=== PATIENT | male | born 1935 | race Caucasian/White ===

== ENCOUNTER 2019-04-20 12:18 | Emergency (ER) | payer MEDICARE ==
[~2019-04-20 12:18] MED LIST: AEC81 PO; AMLO10TA7 PO; ASCO500T9 PO; ATOR40TA71 PO; BUPR200T34 PO; FURO20TA4 PO; KETO5DRO82 OU; LISI40TA4 PO; LOSA100T58 PO; METF-444 PO; METO50TA18 PO; MULT-603 PO; NITR0.4T SL; OFLO35OS OU; OMEP-50 PO; PRED5DRO17 OU; WARF2TAB57 PO; WARF3TAB29 PO
[2019-04-20] MEDS ORDERED: IPRATROPIUM/ALBUTEROL SULFATE 3 ML SOLUTION IH ONE (13:03)
[2019-04-20 13:27] LABS: BASOPHILS % (AUTO) 0.4 % (0.0-5.0); EOSINOPHILS % (AUTO) 0.4 % (0.0-8.0); HEMATOCRIT 47.5 % (42-54); LYMPHOCYTES % (AUTO) 8.2 % (21.0-51.0); MEAN CORPUSCULAR HEMOGLOBIN 31.6 pg (27.0-33.0); MEAN CORPUSCULAR HGB CONC 33.5 g/dL (32.0-36.0); MEAN CORPUSCULAR VOLUME 94.4 fL (79-99); MONOCYTES % (AUTO) 10.4 % (3.0-13.0); NEUTROPHILS % (AUTO) 80.6 % (40.0-77.0); PLATELET COUNT (AUTO) 121 K/uL (130-400); RED BLOOD CELL COUNT(AUTO) 5.03 MIL/uL (4.50-6.20); RED CELL DISTRIBUTION WIDTH 15.7 % (11.0-15.5); WHITE BLOOD COUNT (AUTO) 7.4 K/uL (4.8-10.8)
[2019-04-20] MEDS ORDERED: SODIUM CHLORIDE 0.9% 1000ML 1,000 ML IV ONE (13:30)
[2019-04-20 13:32] LABS: CREATININE 1.4 mg/dL (0.5-1.5); POTASSIUM 4.7 mmol/L (3.5-5.1)
[2019-04-20 13:34] LABS: RAPID GROUP A STREP NEGATIVE (NEGATIVE)
[2019-04-20 13:37] LABS: BILIRUBIN,TOTAL 0.9 mg/dL (0.2-1.0); TOTAL PROTEIN, SERUM 7.7 g/dL (6.0-8.3)
[2019-04-20 14:35] LABS: APPEARANCE,URINE Clear (CLEAR); BILIRUBIN,URINE Negative (NEGATIVE); COLOR,URINE Yellow (YELLOW); GLUCOSE, URINE (UA) Negative (NEGATIVE); KETONES,URINE Negative (NEGATIVE); LEUKOCYTE ESTERASE ,URINE Negative (NEGATIVE); NITRATE,URINE Negative (NEGATIVE); OCCULT BLOOD,URINE Trace (NEGATIVE); PROTEIN,URINE Negative (NEGATIVE)
[2019-04-20 14:49] LABS: BACTERIA,URINE Rare /HPF (None Seen); MUCUS,URINE None Seen LPF (None Seen); SQUAMOUS EPITHELIAL CELL,UR Rare /HPF (0-2); WBC,URINE 0-1 /HPF (0-1)
== END 2019-04-20 15:17 | disposition home or self-care (01) ==
LOC: EDH 12:18
DX: B34.9 Viral infection, unspecified (principal); I25.810 Atherosclerosis of coronary artery bypass graft(s) without angina pectoris; E11.9 Type 2 diabetes mellitus without complications; E78.5 Hyperlipidemia, unspecified; I10 Essential (primary) hypertension; I25.2 Old myocardial infarction; Z87.891 Personal history of nicotine dependence
CPT/HCPCS: 36415; 71046; 80053; 81001; 85025; 87804 ×2; 87880; 94640; 96360; 96361; 99285; J7030

== ENCOUNTER 2020-09-23 14:00 | Inpatient (IN) | payer MEDICARE, OTHER ==
[~2020-09-23] VITALS: Ht 175.3 cm; Wt 93.0 kg
[~2020-09-23 14:00] MED LIST changes: -AEC81 PO; -AMLO10TA7 PO; -ASCO500T9 PO; -FURO20TA4 PO; -KETO5DRO82 OU; -LISI40TA4 PO; -MULT-603 PO; -NITR0.4T SL; -OFLO35OS OU; -OMEP-50 PO; +OMEP20CA12 PO; -PRED5DRO17 OU; -WARF2TAB57 PO
[2020-09-23 15:19] LABS: BASOPHILS % (AUTO) 0.9 % (0.0-5.0); EOSINOPHILS % (AUTO) 3.1 % (0.0-8.0); HEMATOCRIT 43.2 % (42-54); LYMPHOCYTES % (AUTO) 19.4 % (21.0-51.0); MEAN CORPUSCULAR HGB CONC 33.3 g/dL (32.0-36.0); MEAN CORPUSCULAR VOLUME 92.9 fL (79-99); NEUTROPHILS % (AUTO) 65.2 % (40.0-77.0); PLATELET COUNT (AUTO) 136 K/uL (130-400); RED BLOOD CELL COUNT(AUTO) 4.65 MIL/uL (4.50-6.20); RED CELL DISTRIBUTION WIDTH 13.9 % (11.0-15.5); WHITE BLOOD COUNT (AUTO) 5.6 K/uL (4.8-10.8)
[2020-09-23 15:30] LABS: INR 2.86 (0.85-1.15); PROTHROMBIN TIME 28.3 SEC (9.6-11.6)
[2020-09-23 15:31] LABS: PARTIAL THROMBOPLASTIN TIME 37.4 SEC (26.3-35.5)
[2020-09-23 15:36] LABS: ALBUMIN 4.1 g/dL (3.5-5.0); BILIRUBIN,TOTAL 0.6 mg/dL (0.2-1.0); CREATININE 1.3 mg/dL (0.5-1.5); TOTAL PROTEIN, SERUM 7.1 g/dL (6.0-8.3)
[2020-09-26 12:41] VITALS: BP 139/76
[2020-09-26] MEDS ORDERED: AMLO5TAB5 PO (13:49)
[2020-09-26] MEDS ORDERED: FURO40TA5 PO (13:49)
[2020-09-26 15:43] LABS: INR 1.3 (0.85-1.15); PROTHROMBIN TIME 13.8 SEC (9.6-11.6)
[2020-09-26 15:44] LABS: PARTIAL THROMBOPLASTIN TIME 27.6 SEC (26.3-35.5)
[2020-09-27] VITALS (44 sets, daily range): BP systolic 103–298; BP diastolic 49–295
[2020-09-27] MEDS ORDERED: 0.9%NACL 1000ML 1,000 ML IV ONE (07:39)
[2020-09-27] MEDS ORDERED: CEFAZOLIN SODIUM 1 GM VIAL IVP ONE (08:00)
[2020-09-27] MEDS ORDERED: DEXAMETHASONE SOD PHOSPHATE 10MG/ML 1ML VIAL ONE (08:32)
[2020-09-27] MEDS ORDERED: SUCCINYLCHOLINE CHLORIDE 20 MG/ML 10 ML VIAL ONE (08:32)
[2020-09-27] MEDS ORDERED: LIDOCAINE PF 100MG/5ML (2%) SYRINGE 5ML ONE (08:32)
[2020-09-27] MEDS ORDERED: PROPOFOL 10 MG/ML 20ML VIAL IV ONE (08:32)
[2020-09-27] MEDS ORDERED: ONDANSETRON 4MG INJ ONE ×2 (08:32→11:35)
[2020-09-27] MEDS ORDERED: GLYCOPYRROLATE 1 MG/5 ML SYRINGE ONE (08:32)
[2020-09-27] MEDS ORDERED: NEOSTIGMINE 5MG/5ML SYR IV ONE (08:33)
[2020-09-27] MEDS ORDERED: MIDAZOLAM HCL 1 MG/ML 2ML VIAL ONE (08:33)
[2020-09-27] MEDS ORDERED: KETAMINE 50MG/ML SYRINGE 50 MG/ML DISP.SYRIN IV ONE (08:33)
[2020-09-27] MEDS ORDERED: ROCURONIUM 10MG/1ML SYR 10 MG/ML ML ONE ×2 (08:33→09:33)
[2020-09-27] MEDS ORDERED: FENTANYL CITRATE PF 50 MCG/1 ML 5ML AMP IV ONE (08:36)
[2020-09-27] MEDS ORDERED: CEFAZOLIN SODIUM 1 GM VIAL ONE (08:52)
[2020-09-27] MEDS ORDERED: PHENYLEPHRINE HCL 10 MG/ML 1ML VIAL IV ONE (10:00)
[2020-09-27] MEDS ORDERED: ACETAMINOPHEN 325 MG TAB PO PRN (10:00)
[2020-09-27] MEDS ORDERED: ALBUTEROL INHALER 90MCG/INH IH ONE ×2 (10:07→10:09)
[2020-09-27] MEDS: PANTOPRAZOLE 40 MG TAB DR PO SCH (10:54)
[2020-09-27] MEDS ORDERED: BUPIVACAINE/PF 0.5% 30ML VIAL ONE (11:19)
[2020-09-27] MEDS ORDERED: LIDOCAINE HCL 1% 20 ML VIAL ONE (11:19)
[2020-09-27 13:37] LABS: ABG BASE EXCESS -7.1 mmol/L (-2.0-3.0); ABG HCO3 18.3 mmol/L (21.0-28.0); ABG OXYGEN SATURATION 97.8 % (95.0-99.0); ABG PCO2 37 mmHg (35-48)
[2020-09-27] MEDS ORDERED: SODIUM BICARB 50MEQ 50ML VIAL 100 ML ONE (13:54)
[2020-09-27] MEDS ORDERED: SODIUM BICARB 50MEQ 50ML VIAL IV PRN (14:00)
[2020-09-27] MEDS: TRAMADOL HCL 50 MG TABLET PO PRN ×2 (14:15→20:16)
[2020-09-27] MEDS: SODIUM BICARB 50MEQ 50ML VIAL IV PRN ×2 (14:16→17:51)
[2020-09-27 15:08] LABS: ABG BASE EXCESS -2.7 mmol/L (-2.0-3.0); ABG HCO3 22.2 mmol/L (21.0-28.0); ABG OXYGEN SATURATION 91.3 % (95.0-99.0); ABG PCO2 39 mmHg (35-48)
[2020-09-27 16:49] LABS: ABG BASE EXCESS -5.9 mmol/L (-2.0-3.0); ABG OXYGEN SATURATION 95.1 % (95.0-99.0); ABG PCO2 32 mmHg (35-48)
[2020-09-27] MEDS: WARFARIN SODIUM 1 MG TAB PO SCH (17:51)
[2020-09-27] MEDS: CEFAZOLIN SODIUM 1 GM VIAL IVP SCH (17:51)
[2020-09-27] MEDS: LOSARTAN 100 MG TABLET PO SCH (20:14)
[2020-09-27] MEDS: AMLODIPINE 5 MG TAB PO SCH (20:14)
[2020-09-27] MEDS: METFORMIN HCL 500 MG TABLET PO SCH (20:14)
[2020-09-27] MEDS: ATORVASTATIN 40 MG TABLET PO SCH (20:14)
[2020-09-27] MEDS: METOPROLOL TARTRATE 50 MG TAB PO SCH (20:16)
[2020-09-27 20:43] LABS: ABG BASE EXCESS 0.3 mmol/L (-2.0-3.0); ABG HCO3 23.2 mmol/L (21.0-28.0); ABG OXYGEN SATURATION 96.5 % (95.0-99.0); ABG PCO2 33 mmHg (35-48)
[2020-09-28] VITALS (43 sets, daily range): BP systolic 113–155; BP diastolic 59–96
[2020-09-28] MEDS: CEFAZOLIN SODIUM 1 GM VIAL IVP SCH ×2 (00:05→09:44)
[2020-09-28 04:01] LABS: BASOPHILS % (AUTO) 0.1 % (0.0-5.0); HEMATOCRIT 36.7 % (42-54); LYMPHOCYTES % (AUTO) 5.7 % (21.0-51.0); MEAN CORPUSCULAR HGB CONC 35.1 g/dL (32.0-36.0); MEAN CORPUSCULAR VOLUME 91.1 fL (79-99); MONOCYTES % (AUTO) 7.4 % (3.0-13.0); NEUTROPHILS % (AUTO) 86.4 % (40.0-77.0); PLATELET COUNT (AUTO) 123 K/uL (130-400); RED BLOOD CELL COUNT(AUTO) 4.03 MIL/uL (4.50-6.20); RED CELL DISTRIBUTION WIDTH 14.1 % (11.0-15.5); WHITE BLOOD COUNT (AUTO) 11.4 K/uL (4.8-10.8)
[2020-09-28 04:14] LABS: ALBUMIN 3.3 g/dL (3.5-5.0); BILIRUBIN,TOTAL 0.6 mg/dL (0.2-1.0); CREATININE 1.3 mg/dL (0.5-1.5); POTASSIUM 3.8 mmol/L (3.5-5.1); TOTAL PROTEIN, SERUM 6.2 g/dL (6.0-8.3)
[2020-09-28 04:26] LABS: PLATELET MORPHOLOGY PLT CLUMPS PRESENT
[2020-09-28] MEDS ORDERED: ALBUTEROL INHALER 90MCG/INH IH PRN (05:00)
[2020-09-28 05:18] LABS: ABG BASE EXCESS -1.3 mmol/L (-2.0-3.0); ABG HCO3 21.7 mmol/L (21.0-28.0); ABG OXYGEN SATURATION 94.5 % (95.0-99.0); ABG PCO2 32 mmHg (35-48)
[2020-09-28] MEDS: SODIUM BICARB 50MEQ 50ML VIAL IV PRN (05:24)
[2020-09-28] MEDS ORDERED: IPRATROPIUM/ALBUTEROL SULFATE 3 ML SOLUTION IH ONE (05:30)
[2020-09-28] MEDS ORDERED: SOLU-MEDROL 40MG VIAL ONE (05:42)
[2020-09-28] MEDS: SOLU-MEDROL 40MG VIAL IVP SCH ×2 (05:42→08:01)
[2020-09-28] MEDS: PANTOPRAZOLE 40 MG TAB DR PO SCH (08:01)
[2020-09-28] MEDS: METOPROLOL TARTRATE 50 MG TAB PO SCH ×2 (08:01→22:33)
[2020-09-28] MEDS: FUROSEMIDE 40 MG TABLET PO SCH (08:01)
[2020-09-28] MEDS: METFORMIN HCL 500 MG TABLET PO SCH ×2 (08:01→22:33)
[2020-09-28 08:46] LABS: ABG HCO3 24.8 mmol/L (21.0-28.0); ABG OXYGEN SATURATION 93.9 % (95.0-99.0); ABG PCO2 37 mmHg (35-48)
[2020-09-28 09:05] LABS: INR 1.24 (0.85-1.15); PROTHROMBIN TIME 13.3 SEC (9.6-11.6)
[2020-09-28 09:07] LABS: PARTIAL THROMBOPLASTIN TIME 27.4 SEC (26.3-35.5)
[2020-09-28] MEDS: BUPROPION HCL 200 MG PO SCH ×2 (09:44→11:44)
[2020-09-28] MEDS: TRAMADOL HCL 50 MG TABLET PO PRN (16:55)
[2020-09-28] MEDS: WARFARIN SODIUM 1 MG TAB PO SCH (16:55)
[2020-09-28] MEDS: ATORVASTATIN 40 MG TABLET PO SCH (22:33)
[2020-09-28] MEDS: AMLODIPINE 5 MG TAB PO SCH (22:33)
[2020-09-28] MEDS: LOSARTAN 100 MG TABLET PO SCH (22:34)
[2020-09-29] VITALS (7 sets, daily range): BP systolic 104–143; BP diastolic 68–91
[2020-09-29] MEDS: TRAMADOL HCL 50 MG TABLET PO PRN ×5 (01:00→21:31)
[2020-09-29 05:01] LABS: HEMATOCRIT 36.4 % (42-54); MEAN CORPUSCULAR HEMOGLOBIN 30.8 pg (27.0-33.0); MEAN CORPUSCULAR VOLUME 93.6 fL (79-99); RED BLOOD CELL COUNT(AUTO) 3.89 MIL/uL (4.50-6.20); RED CELL DISTRIBUTION WIDTH 14.1 % (11.0-15.5); WHITE BLOOD COUNT (AUTO) 15.9 K/uL (4.8-10.8)
[2020-09-29] MEDS: PANTOPRAZOLE 40 MG TAB DR PO SCH (06:19)
[2020-09-29] MEDS: METFORMIN HCL 500 MG TABLET PO SCH ×2 (08:14→21:31)
[2020-09-29] MEDS: SOLU-MEDROL 40MG VIAL IVP SCH ×2 (08:14→21:31)
[2020-09-29] MEDS: FUROSEMIDE 40 MG TABLET PO SCH (08:15)
[2020-09-29] MEDS: METOPROLOL TARTRATE 50 MG TAB PO SCH ×2 (08:15→21:31)
[2020-09-29] MEDS: BUPROPION HCL 200 MG PO SCH (10:57)
[2020-09-29] MEDS: WARFARIN SODIUM 2 MG TAB PO SCH (16:20)
[2020-09-29] MEDS: ATORVASTATIN 40 MG TABLET PO SCH (21:31)
[2020-09-29] MEDS: AMLODIPINE 5 MG TAB PO SCH (21:31)
[2020-09-29] MEDS: LOSARTAN 100 MG TABLET PO SCH (21:31)
[2020-09-30 04:00] VITALS: BP 125/77
[2020-09-30] MEDS: PANTOPRAZOLE 40 MG TAB DR PO SCH (06:52)
[2020-09-30 07:00] VITALS: BP 120/74
[2020-09-30] MEDS: METFORMIN HCL 500 MG TABLET PO SCH ×2 (09:43→20:49)
[2020-09-30] MEDS: FUROSEMIDE 40 MG TABLET PO SCH (09:43)
[2020-09-30] MEDS: METOPROLOL TARTRATE 50 MG TAB PO SCH ×2 (09:43→20:49)
[2020-09-30 11:00] VITALS: BP 125/73
[2020-09-30] MEDS: BUPROPION HCL 200 MG PO SCH (12:18)
[2020-09-30] MEDS ORDERED: BUPROPION HCL 200 MG PO SCH ×2 (12:30)
[2020-09-30 16:00] VITALS: BP 131/90
[2020-09-30] MEDS: WARFARIN SODIUM 2 MG TAB PO SCH (17:24)
[2020-09-30 19:23] VITALS: BP 156/92
[2020-09-30] MEDS: ATORVASTATIN 40 MG TABLET PO SCH (20:49)
[2020-09-30] MEDS: LOSARTAN 100 MG TABLET PO SCH (20:49)
[2020-09-30] MEDS: AMLODIPINE 5 MG TAB PO SCH (20:49)
[2020-09-30] MEDS: TRAMADOL HCL 50 MG TABLET PO PRN (20:50)
[2020-09-30 23:28] VITALS: BP 150/114
[2020-10-01 03:10] VITALS: BP 136/75
[2020-10-01 05:05] LABS: INR 1.08 (0.85-1.15); PROTHROMBIN TIME 11.7 SEC (9.6-11.6)
[2020-10-01] MEDS: PANTOPRAZOLE 40 MG TAB DR PO SCH (05:57)
[2020-10-01 07:00] VITALS: BP 133/83
[2020-10-01] MEDS: FUROSEMIDE 40 MG TABLET PO SCH ×2 (10:07→19:08)
[2020-10-01] MEDS: METFORMIN HCL 500 MG TABLET PO SCH ×2 (10:07→20:04)
[2020-10-01] MEDS: METOPROLOL TARTRATE 50 MG TAB PO SCH ×2 (10:07→20:04)
[2020-10-01 11:00] VITALS: BP 123/70
[2020-10-01] MEDS ORDERED: BUPROPION HCL 200 MG PO SCH (11:00)
[2020-10-01 16:00] VITALS: BP 134/76
[2020-10-01] MEDS: WARFARIN SODIUM 2 MG TAB PO SCH (19:07)
[2020-10-01 19:22] VITALS: BP 138/83
[2020-10-01] MEDS: AMLODIPINE 5 MG TAB PO SCH (20:04)
[2020-10-01] MEDS: LOSARTAN 100 MG TABLET PO SCH (20:04)
[2020-10-01] MEDS: ATORVASTATIN 40 MG TABLET PO SCH (20:04)
[2020-10-01 23:21] VITALS: BP 146/83
[2020-10-02 03:19] VITALS: BP 148/83
[2020-10-02 05:35] LABS: HEMATOCRIT 39.4 % (42-54); MEAN CORPUSCULAR HEMOGLOBIN 30.6 pg (27.0-33.0); MEAN CORPUSCULAR HGB CONC 33.5 g/dL (32.0-36.0); MEAN CORPUSCULAR VOLUME 91.2 fL (79-99); RED BLOOD CELL COUNT(AUTO) 4.32 MIL/uL (4.50-6.20); RED CELL DISTRIBUTION WIDTH 13.4 % (11.0-15.5)
[2020-10-02 05:36] LABS: INR 1.1 (0.85-1.15); PROTHROMBIN TIME 11.9 SEC (9.6-11.6)
[2020-10-02 05:40] LABS: CREATININE 1.1 mg/dL (0.5-1.5); POTASSIUM 3.7 mmol/L (3.5-5.1)
[2020-10-02] MEDS: PANTOPRAZOLE 40 MG TAB DR PO SCH (06:43)
[2020-10-02] MEDS: FUROSEMIDE 40 MG TABLET PO SCH (09:14)
[2020-10-02] MEDS: METOPROLOL TARTRATE 50 MG TAB PO SCH (09:14)
[2020-10-02] MEDS: METFORMIN HCL 500 MG TABLET PO SCH (09:14)
== END 2020-10-02 12:45 | disposition home or self-care (01) | DRG 164 ==
LOC: EDSTATUS 14:00 → DAHIP 09-27 06:27 → 2CH 09-27 12:33 → 4CH 09-28 18:25
PROVIDERS: ADMIT Thoracic Surgery (Cardiothoracic Vascular Surgery); ATTEND Thoracic Surgery (Cardiothoracic Vascular Surgery)
PROC: 07B70ZX Excision of Thorax Lymphatic, Open Approach, Diagnostic (ICD-10-PCS; 2020-09-27)
PROC: 0BBG0ZZ Excision of Left Upper Lung Lobe, Open Approach (ICD-10-PCS; principal; 2020-09-27 08:30)
DX: C34.90 Malignant neoplasm of unspecified part of unspecified bronchus or lung (principal); I48.20 Chronic atrial fibrillation, unspecified; I10 Essential (primary) hypertension; E78.5 Hyperlipidemia, unspecified; E11.9 Type 2 diabetes mellitus without complications; F32.9 Major depressive disorder, single episode, unspecified; H91.90 Unspecified hearing loss, unspecified ear; I25.10 Atherosclerotic heart disease of native coronary artery without angina pectoris; E66.9 Obesity, unspecified; Z20.822 Contact with and (suspected) exposure to COVID-19; E78.00 Pure hypercholesterolemia, unspecified; Z79.899 Other long term (current) drug therapy; Z79.01 Long term (current) use of anticoagulants; Z68.30 Body mass index [BMI] 30.0-30.9, adult; Z87.891 Personal history of nicotine dependence; Z80.42 Family history of malignant neoplasm of prostate; Z82.49 Family history of ischemic heart disease and other diseases of the circulatory system; Z82.0 Family history of epilepsy and other diseases of the nervous system; Z95.1 Presence of aortocoronary bypass graft
CPT/HCPCS: 36415; 71045; 71046; 80048; 80053; 82435; 82803; 82947; 82948; 83605; 84132; 84295; 85018; 85025; 85027; 85610; 85730; 86850; 86900; 86901; 87070; 87076; 87101; 87116; 87206; 88305; 88307; 88331; 88341; 88342; 93005; 94640; 97039; A7048; C9803; G0378; J0330; J0690; J1100; J2001; J2250; J2370; J2405; J2704; J2710; J2920; J3010; J3490; J7030; U0003

== ENCOUNTER → 2023-08-18 | Outpatient (CLI) | payer OTHER ==
[~2023-08-18] MED LIST changes: +AMLO5TAB5 PO; +FURO40TA5 PO; -LOSA100T58 PO; +LOSA100T59 PO
== END | disposition home or self-care (01) ==
LOC: RAH 13:04
PROVIDERS: ATTEND Family Medicine
DX: R13.10 Dysphagia, unspecified (principal)
CPT/HCPCS: 74230; 92611

== ENCOUNTER → 2023-09-21 | Outpatient (CLI) | payer OTHER | LOC: SHCH 14:53 | PROVIDERS: ATTEND Internal Medicine Cardiovascular Disease | DX: H81.10 Benign paroxysmal vertigo, unspecified ear (principal) | CPT/HCPCS: 70551 ==